=== PATIENT | male | born 1940 | race Native Hawaiian/Other Pacific Islander ===

== ENCOUNTER 2017-08-15 07:18 | Day surgery (SDC) | payer MEDICARE, BC ==
[2017-08-15 07:55] VITALS: BMI 25.8
[2017-08-15 08:20] VITALS: TEMP 97.8
[2017-08-15] MEDS ORDERED: Lactated Ringer's 1,000 ML IV ONE (09:04)
--- NOTE | 2017-08-15 09:11 | CP.SDSHP ---
Same Day Surgery H & P - History Proposed Procedure: EGD Pre-Op Diagnosis: SEE NOTES - Previous Medical/Surgical History Cardiac: ASHD/CAD Endocrine/Metabolic: Diabetes, Other Misc: Other Previous Surgical History: CARD. STENT , S/P ELLA. - Allergies Allergies: Allergies aspirin Allergy (Intermediate, Verified 11/26/15 23:18) RASH - Physical Exam General Appearance: N Vital Signs: Vital Signs 08/15/17 07:45 Temperature 97.8 F Pulse Rate 79 Respiratory 19 Rate Blood Pressure 139/65 O2 Sat by Pulse 99 Oximetry Mental Status: Alert & Oriented x3 Neuro: WNL Heart: Other Lungs: WNL GI: Other - {Optional Preform as Required} Breast: WNL Abdomen: Other Rectal: Other Integument: WNL : Other Ortho: Other ENT: WNL - Impression Pt. Evaluated Today:Candidate for Anesthesia & Procedure: Yes - Date & Time Time: 09:11 Short Stay Discharge - Short Stay Discharge Admitting Diagnosis/Reason for Visit: FUNCTIONAL DYSPEPSIA Disposition: HOME/ ROUTINE
[2017-08-15] MEDS ORDERED: Propofol 10 mg/ml Inj (20 ML) ONE (09:16)
[2017-08-15] MEDS ORDERED: Belladonna-Phenobarbital PO ONE (09:45)
[2017-08-15 10:32] VITALS: BP 106/58; PULSE 67; RESP 16; O2SAT 99
[2017-08-15 15:04] LABS: C DIFF TOXIN A B NEGATIVE (NEGATIVE)
[2017-08-15 15:22] LABS: FECAL LEUKOCYTES POSITIVE (NEGATIVE)
== END 2017-08-15 10:55 | disposition home or self-care (01) ==
LOC: C.ENDO 07:18
PROVIDERS: ATTEND Specialist
DX: K25.9 Gastric ulcer, unspecified as acute or chronic, without hemorrhage or perforation (principal); K30 Functional dyspepsia; K44.9 Diaphragmatic hernia without obstruction or gangrene; E11.9 Type 2 diabetes mellitus without complications; I25.10 Atherosclerotic heart disease of native coronary artery without angina pectoris
CPT/HCPCS: 43239; 82948; 87045; 87177; 87209; 87230; 88305; 89055; J2704; J7120

== ENCOUNTER 2018-09-11 07:34 | Outpatient (CLI) | payer MEDICARE, BC | END 2018-09-11 07:35 | disposition home or self-care (01) | LOC: C.USIC 07:34 | DX: N28.1 Cyst of kidney, acquired (principal); R10.13 Epigastric pain ==